=== PATIENT | female | born 1985 | race Two or more races ===

== ENCOUNTER 2019-03-08 18:05 | Inpatient (IN) | payer OTHER ==
[~2019-03-08] VITALS: Ht 162.6 cm; Wt 56.7 kg
[2019-03-08] MEDS ORDERED: MULTIVITAMINS1 EAC8 ORAL (18:29)
--- NOTE | 2019-03-08 18:29 | NUR ---
ED Nurse Note: cxr at bedside
--- NOTE | 2019-03-08 18:31 | NUR ---
ED Nurse Note: Patient walked into ER for positive TB result from a clinic. pt was refered to go to ED. Patient reports having fever, chills, night sweat, bodyache, weigt loss of 5lb in 1 month.
[2019-03-08 18:32] VITALS: BP 100/58
--- NOTE | 2019-03-08 18:42 | NUR ---
ED Nurse Note: blood sample sent down to lab. pt states she doesnt not have any stutum at this time. pt is aware to provide sputum. specimen cup at bedside.
[2019-03-08 18:59] LABS: BASOPHILS % (AUTO) 0.8 % (0.0-2.0); EOSINOPHILS % (AUTO) 0.7 % (0.0-3.0); HEMATOCRIT 34.5 % (37.0-47.0); LYMPHOCYTES % (AUTO) 27.5 % (20.0-45.0); MEAN CORPUSCULAR VOLUME 101 FL (80-99); PLATELET COUNT 218 K/UL (150-450); RED BLOOD COUNT 3.42 M/UL (4.20-5.40); RED CELL DISTRIBUTION WIDTH 13.7 % (11.6-14.8); WHITE BLOOD COUNT 7.2 K/UL (4.8-10.8)
--- NOTE | 2019-03-08 19:01 | NUR ---
ED Nurse Note: report given to bryce
[2019-03-08 19:09] LABS: ANION GAP 9 mmol/L (5-15); BLOOD UREA NITROGEN 16 mg/dL (7-18); CALCIUM 8.5 MG/DL (8.5-10.1); CARBON DIOXIDE 28 MMOL/L (21-32); CHLORIDE 105 MMOL/L (98-107); CREATININE 0.8 MG/DL (0.55-1.30); POTASSIUM 3.3 MMOL/L (3.5-5.1); SODIUM 142 MMOL/L (136-145)
[2019-03-08 19:14] LABS: ALANINE AMINOTRANSFERASE 27 U/L (12-78); ALBUMIN 3.3 G/DL (3.4-5.0); ALBUMIN/GLOBULIN RATIO 0.7 (1.0-2.7); ALKALINE PHOSPHATASE 94 U/L (46-116); ASPARTATE AMINO TRANSFERASE 20 U/L (15-37); BILIRUBIN,TOTAL 0.2 MG/DL (0.2-1.0)
--- NOTE | 2019-03-08 19:53 | Emergency Room Report ---
History of Present Illness General Chief Complaint: Upper Respiratory Illness Source: Patient Present Illness HPI Disclaimer: Please note that this report is being documented using [employer] technology. This can lead to erroneous entry secondary to incorrect interpretation by the dictating instrument. HPI: 33-year-old female with a history of tuberculosis treated 12 years ago presents for evaluation of possible reactivation. The patient describes 1 month of night sweats and clamminess as well as nonproductive intermittent cough , pain in her hands, intermittent abdominal cramping and diarrhea as well as headaches. She had outpatient lab testing on 03/03/2019 tested positive on QuantiFERON TB Gold assay test. She presented to the emergency department at the request of her PMD for evaluation and admission. She is well-appearing in no respiratory distress. She denies other symptoms such as chest pain, shortness of breath, palpitations, skin rash or fevers during the day. PMH: TB treated 12 years ago PSH: Reviewed Allergies: Denies Allergies: Coded Allergies: No Known Allergies (Unverified , 03/08/19) Patient History Last Menstrual Period: 12/2018 Nursing Documentation-PMH Past Medical History: No Stated History Review of Systems All Other Systems: negative except mentioned in HPI Physical Exam Vital Signs Date Time Temp Pulse Resp B/P (MAP) Pulse Ox O2 Delivery O2 Flow Rate FiO2 03/08/19 18:25 97.0 86 15 98/57 (71) 99 Room Air General: Awake and alert, no acute distress HEENT: NC/AT. EOMI. patient is wearing a and 95 mask Cardiovascular: RRR. S1 and S2 normal. No murmur appreciated Resp: Normal work of breathing. No cough, wheezing or crackles appreciated Abdomen: Abdomen is soft, nondistended. Nontender Skin: Intact. No abrasions, laceration or rash over the exposed skin MSK: Normal tone and bulk. Moving all extremities. No obvious deformity. Neuro: Awake and alert. Mentating appropriately. Medical Decision Making Diagnostic Impression: Primary Impression: Tuberculosis screening ER Course 33-year-old female with prior history of tuberculosis presents for possible reactivation. QuantiFERON gold assay test positive on 03/03 with 1 month of night sweats, intermittent cough, arthralgias and intermittent diarrhea. Patient was placed in a negative pressure isolation room. Send broad labs which have returned largely within normal limits. Chest x-ray does not show an obvious cavitary lesion. She is currently afebrile. Will start RIPE treatment and admit for infectious disease evaluation. Laboratory Tests Test 03/08/19 18:36 White Blood Count 7.2 K/UL (4.8-10.8) Red Blood Count 3.42 M/UL (4.20-5.40) L Hemoglobin 11.0 G/DL (12.0-16.0) L Hematocrit 34.5 % (37.0-47.0) L Mean Corpuscular Volume 101 FL (80-99) H Mean Corpuscular Hemoglobin 32.1 PG (27.0-31.0) H Mean Corpuscular Hemoglobin Concent 31.9 G/DL (32.0-36.0) L Red Cell Distribution Width 13.7 % (11.6-14.8) Platelet Count 218 K/UL (150-450) Mean Platelet Volume 7.5 FL (6.5-10.1) Neutrophils (%) (Auto) 61.0 % (45.0-75.0) Lymphocytes (%) (Auto) 27.5 % (20.0-45.0) Monocytes (%) (Auto) 10.0 % (1.0-10.0) Eosinophils (%) (Auto) 0.7 % (0.0-3.0) Basophils (%) (Auto) 0.8 % (0.0-2.0) Sodium Level 142 MMOL/L (136-145) Potassium Level 3.3 MMOL/L (3.5-5.1) L Chloride Level 105 MMOL/L (98-107) Carbon Dioxide Level 28 MMOL/L (21-32) Anion Gap 9 mmol/L (5-15) Blood Urea Nitrogen 16 mg/dL (7-18) Creatinine 0.8 MG/DL (0.55-1.30) Estimate Glomerular Filtration Rate > 60 mL/min (>60) Glucose Level 110 MG/DL (74-106) H Calcium Level 8.5 MG/DL (8.5-10.1) Total Bilirubin 0.2 MG/DL (0.2-1.0) Aspartate Amino Transferase (AST) 20 U/L (15-37) Alanine Aminotransferase (ALT) 27 U/L (12-78) Alkaline Phosphatase 94 U/L (46-116) Total Protein 7.9 G/DL (6.4-8.2) Albumin 3.3 G/DL (3.4-5.0) L Globulin 4.6 g/dL Albumin/Globulin Ratio 0.7 (1.0-2.7) L Reevaluation Time: 21:59 Last Vital Signs Date Time Temp Pulse Resp B/P (MAP) Pulse Ox O2 Delivery O2 Flow Rate FiO2 03/08/19 18:32 81 15 Room Air 03/08/19 18:32 97.6 100/58 99 Reevaluation Impression Labs are returned largely within normal limits. No significant white count, mild anemia. Chemistry within normal limits. No evidence of infiltrate or cavitary lesions on chest x-ray. Patient will be admitted to an isolation room for ID evaluation. Admitted to panel physician Disposition: ADMITTED INPATIENT Condition: Serious Referrals: [facility],REFERRING (PCP) Brian Diego MD Mar 08, 2019 19:53
[2019-03-08] MEDS: Isoniazid 300mg tab ORAL SCH (20:14)
--- NOTE | 2019-03-08 20:40 | NUR ---
ED Nurse Note: Patient was admited to [facility] due to +TB. Patient was transfered to the unit via gurney, with all belongings. Patient AAO x4,VSS at this time, skin is warm to touch.
--- NOTE | 2019-03-08 21:25 | NUR ---
Recieved report from ER nurse Shantal Pt coming to the floor with diagnosis of positive TB. Pt awake alert oriented able to make needs known per patient no other health conditions noted.
[2019-03-08] MEDS ORDERED: Zolpidem 5mg tab ORAL PRN (21:30)
[2019-03-08 21:37] VITALS: BP 106/59
--- NOTE | 2019-03-08 21:45 | NUR ---
Pt arrived to [facility] escorted by Smooth. pt awake alert and oriented x4 able to make needs known. Pt arrived wearing a N95 mask. Pt placed in a negative pressure room droplet precautions maintained. Pt IV to RAC patent intact. no s/s of chill fevers or cough noted at this time. Pt able to ambulate to the restroom and around the room with steady gait. Pt belongings at bedside. Pt instructed and educated not to come out of the room. taught how to use call light to notify the nurse call light left in reach , bed in lowest position will continue to monitor and provide care and treatment as ordered.
--- NOTE | 2019-03-08 21:48 | NUR ---
Nurses notes Contacted Lonnie Kirk for abnormal lab K 3.3, new orders of KCL 40meq IV given will implement and continue to monitor patient labs and condition,
[2019-03-08] MEDS ORDERED: PPD Tuberculin Skin Test 5TU IDERMAL ONE (22:00)
--- NOTE | 2019-03-09 00:23 | NUR ---
Nurse notes Contacted Dr. Fleming > pt c/o of intense pain to IV site at [facility] during potassium infusing. IV immediately stopped no visual skin color changes noted at the IV site or arm at this time. vitals WNL Pt " states arm feel better after stopping IV fluids". awaiting call from provider will continue to monitor for any additional reactions.
[2019-03-09 03:20] VITALS: BP_SYST 101
--- NOTE | 2019-03-09 05:00 | NUR ---
Nurse notes Pt b/p 80/48 asymptomatic pt states' she feels okay"" Dr Fleming notified
[2019-03-09 06:17] LABS: BASOPHILS % (AUTO) 0.6 % (0.0-2.0); EOSINOPHILS % (AUTO) 0.4 % (0.0-3.0); HEMATOCRIT 30.6 % (37.0-47.0); HEMOGLOBIN 10.6 G/DL (12.0-16.0); LYMPHOCYTES % (AUTO) 21.8 % (20.0-45.0); MEAN CORPUSCULAR VOLUME 95 FL (80-99); MONOCYTES % (AUTO) 9.2 % (1.0-10.0); PLATELET COUNT 209 K/UL (150-450); RED BLOOD COUNT 3.23 M/UL (4.20-5.40); RED CELL DISTRIBUTION WIDTH 13.3 % (11.6-14.8); WHITE BLOOD COUNT 6.6 K/UL (4.8-10.8)
--- NOTE | 2019-03-09 07:50 | NUR ---
NURSE NOTES: Received patient in bed. Awake A/O x4. On room air, respirations unlabored. IV site in the Right AC noted with no redness or swelling. Patient denies pain at this time.
[2019-03-09 08:00] VITALS: BP 95/57
[2019-03-09] MEDS: Heparin 5000 units/ml inj SUBQ SCH ×2 (09:00→21:00)
[2019-03-09] MEDS: Isoniazid 300mg tab ORAL SCH (09:26)
--- NOTE | 2019-03-09 09:38 | NUR ---
NURSE NOTES: Patient refused heparin injection. Educated patient on the importance/use of the medication. Patient states she walks around and does not want it.
--- NOTE | 2019-03-09 11:00 | NUR ---
NURSE NOTES: Patient returned to the unit from CT scan. Patient A/O x4, no apparent distress.
--- NOTE | 2019-03-09 11:45 | Diagnostic Imaging Report ---
Indication: Cough Comparison: None A single view chest radiograph was obtained. Findings: Cardiomediastinal appearance is within normal limits for age. The lungs are clear. Pulmonary vascularity is appropriate. The diaphragmatic contour is smooth and costophrenic angles are sharp. No pleural effusions are identified. The bones are unremarkable. Impression: No acute findings
--- NOTE | 2019-03-09 11:58 | NUR ---
NURSE NOTES: Patient went down for CT chest via wc. Patient in stable condition.
[2019-03-09 12:00] VITALS: BP 92/56
--- NOTE | 2019-03-09 13:18 | Pulmonology Progress Note ---
Assessment/Plan Problems: (1) History of tuberculosis Assessment/Plan CT of chest PPD ID evaluation Subjective ROS Limited/Unobtainable: Yes Interval Events: no new complains Constitutional: Reports: no symptoms HEENT: Repors: no symptoms Allergies: Coded Allergies: No Known Allergies (Unverified , 03/08/19) Objective Last 24 Hour Vital Signs Date Time Temp Pulse Resp B/P (MAP) Pulse Ox O2 Delivery O2 Flow Rate FiO2 03/09/19 12:00 98.1 18 92/56 (68) 100 03/09/19 09:00 Room Air 03/09/19 08:00 98.4 18 95/57 (70) 97 03/09/19 03:20 98.7 17 101/ 100 03/08/19 22:12 Room Air 03/08/19 21:40 97.6 68 18 106/59 99 Room Air 03/08/19 21:37 97.6 68 18 106/59 99 Room Air 03/08/19 18:32 81 15 Room Air 03/08/19 18:32 97.6 81 15 100/58 99 Room Air 03/08/19 18:25 97.0 86 15 98/57 (71) 99 Room Air Intake and Output 03/08/19 03/09/19 18:59 06:59 Intake Total 400 ml Balance 400 ml Intake Oral 400 ml General Appearance: WD/WN HEENT: normocephalic, atraumatic Respiratory/Chest: chest wall non-tender, lungs clear Breasts: no masses Cardiovascular: normal rate Abdomen: normal bowel sounds, soft, non tender, no mass Extremities: no cyanosis, no clubbing Skin: no rash Neurologic/Psychiatric: no motor/sensory deficits Lymphatic: no neck adenopathy Laboratory Tests 03/08/19 18:36: White Blood Count 7.2, Red Blood Count 3.42L, Hemoglobin 11.0L, Hematocrit 34.5L , Mean Corpuscular Volume 101H, Mean Corpuscular Hemoglobin 32.1H, Mean Corpuscular Hemoglobin Concent 31.9L, Red Cell Distribution Width 13.7, Platelet Count 218, Mean Platelet Volume 7.5, Neutrophils (%) (Auto) 61.0, Lymphocytes (%) (Auto) 27.5, Monocytes (%) (Auto) 10.0, Eosinophils (%) (Auto) 0.7, Basophils (%) (Auto) 0.8, Sodium Level 142, Potassium Level 3.3L, Chloride Level 105, Carbon Dioxide Level 28, Anion Gap 9, Blood Urea Nitrogen 16, Creatinine 0.8, Estimat Glomerular Filtration Rate > 60, Glucose Level 110H, Calcium Level 8.5, Total Bilirubin 0.2, Aspartate Amino Transf (AST/SGOT) 20, Alanine Aminotransferase (ALT/SGPT) 27, Alkaline Phosphatase 94, Lactate Dehydrogenase 161, Total Protein 7.9, Albumin 3.3L, Globulin 4.6, Albumin/ Globulin Ratio 0.7L 03/09/19 05:59: White Blood Count 6.6, Red Blood Count 3.23L, Hemoglobin 10.6L, Hematocrit 30.6L , Mean Corpuscular Volume 95, Mean Corpuscular Hemoglobin 32.8H, Mean Corpuscular Hemoglobin Concent 34.5, Red Cell Distribution Width 13.3, Platelet Count 209, Mean Platelet Volume 6.3L, Neutrophils (%) (Auto) 68.0, Lymphocytes ( %) (Auto) 21.8, Monocytes (%) (Auto) 9.2, Eosinophils (%) (Auto) 0.4, Basophils (%) (Auto) 0.6, Carcinoembryonic Antigen [Pending], Human Chorionic Gonadotropin , Qual Negative, Blastomyces Ab Immunodiffusion [Pending], Histoplasma Mycelial Antibody [Pending], Histoplasma Antibody w Mycelial Ag [Pending], Histoplasma Antibody with Yeast Ag [Pending], TB Test (T-Spot) [Pending], TB Test Nil Control (T-Spot) [Pending], TB Test Panel A (T-Spot) [Pending], TB Test Panel B (T-Spot) [Pending], TB Test Positive Control (T-Spot) [Pending] Current Medications Medications (Trade) Dose Ordered Sig/Alma Rosa Route PRN Reason Start Time Stop Time Status Last Admin Dose Admin Acetaminophen (Tylenol) 650 mg Q4H PRN ORAL fever 03/08/19 21:30 04/07/19 21:29 Ethambutol HCl (Myambutol) 1,200 mg DAILY ORAL 03/08/19 20:00 04/07/19 19:59 03/09/19 09:26 Heparin Sodium (Porcine) (Heparin 5000 units/ml) 5,000 units EVERY 12 HOURS SUBQ 03/09/19 09:00 04/08/19 08:59 Isoniazid (Inh) 300 mg DAILY ORAL 03/08/19 20:00 04/07/19 19:59 03/09/19 09:26 Ondansetron HCl (Zofran) 4 mg Q6H PRN IVP Nausea & Vomiting 03/08/19 21:30 04/07/19 21:29 Pyrazinamide (Pza) 1,500 mg DAILY ORAL 03/08/19 20:00 04/07/19 19:59 03/09/19 09:26 Rifampin (Rifadin) 600 mg DAILY ORAL 03/08/19 20:00 04/07/19 19:59 03/09/19 09:26 Zolpidem Tartrate (Ambien) 5 mg HSPRN PRN ORAL Insomnia 03/08/19 21:30 03/15/19 21:29 Ghada Baldwin MD Mar 09, 2019 13:18
--- NOTE | 2019-03-09 15:15 | Diagnostic Imaging Report ---
Indication: Chest pain Technique: Continuous helical transaxial imaging of the chest was obtained from the thoracic inlet to the upper abdomen after intravenous nonionic contrast administration. Coronal 2-D reformats were also obtained. Automatic Exposure Control was utilized. Total Dose length Product (DLP): 516.[address] Dose Index Volume (CTDIvol): 79.7 mGy Comparison: none Findings: The lungs are clear. There is no adenopathy identified. The heart is unremarkable. No pleural or pericardial effusions are identified. The liver is hypodense. Gallbladder is contracted. IMPRESSION: No acute findings The CT scanner at [facility] is accredited by the [employer] and the scans are performed using dose optimization techniques as appropriate to a performed exam including Automatic Exposure control.
--- NOTE | 2019-03-09 15:31 | NUR ---
CASE MANAGEMENT:INITIAL REVIEW 33 YR OLD FEMALE FROM CLINIC CC;UPPER RESPIRATORY ILLNESS SI;TUBERCULOSIS SCREENING 98.1 68 18 92/56 97% ON RA IS;CXR - No acute findings CHEST CT - No acute findings ADMITTED TO MED SURG MED SURG STATUS DCP; FROM HOME
[2019-03-09 16:00] VITALS: BP 90/54
--- NOTE | 2019-03-09 16:05 | Consultation ---
History of Present Illness General Date patient seen: Mar 09, 2019 Chief Complaint: Upper Respiratory Illness Present Illness HPI 33 y/o F with hx of Tuberculosis- likely latent (treated 12 yrs ago) presented to ED on 03/08 with 1 months of night sweats and clamminess, hand and foot pain and swelling, intermittent abd cramping and diarrhea, headache, intermitent rash on thigh and legs. 5 lbs wt loss in 1 month. Patient says that she saw her PCP and did some testing and her blood test for TB was positive so she was sent to hospital. No chest imaging or sputum collected. Denied CP, SOB, cough Alisa was born in [facility] [place] and moved to [facility] at age 13. She was diagnosed with tuberculosis about 12 years ago. By the description seems it was latent TB. Pt described having no symptoms and she had a positive skin test and treated with months; unable to see which medication or if multiple or one medication. Allergies: Coded Allergies: No Known Allergies (Unverified , 03/08/19) Medication History Scheduled Multivitamin With Minerals (Multivitamins With Minerals*), 1 TAB ORAL DAILY, ( Reported) Patient History Healthcare decision maker Patient Resuscitation status Full Code Advanced Directive on File Patient History Narrative Pmhx: as above Shx: reviewed Fhx: non contributory Review of Systems All Other Systems: negative except mentioned in HPI Physical Exam Physical Exam Narrative General: Awake and alert, no acute distress HEENT: NC/AT. EOMI. patient is wearing a and 95 mask Cardiovascular: RRR. S1 and S2 normal. No murmur appreciated Resp: Normal work of breathing. No cough, wheezing or crackles appreciated Abdomen: Abdomen is soft, nondistended. Nontender Skin: Intact. No abrasions, laceration or rash over the exposed skin MSK: Normal tone and bulk. Moving all extremities. No obvious deformity. Neuro: Awake and alert. Mentating appropriately. Last 24 Hour Vital Signs Date Time Temp Pulse Resp B/P (MAP) Pulse Ox O2 Delivery O2 Flow Rate FiO2 03/09/19 12:00 98.1 18 92/56 (68) 100 03/09/19 09:00 Room Air 03/09/19 08:00 98.4 18 95/57 (70) 97 03/09/19 03:20 98.7 17 101/ 100 03/08/19 22:12 Room Air 03/08/19 21:40 97.6 68 18 106/59 99 Room Air 03/08/19 21:37 97.6 68 18 106/59 99 Room Air 03/08/19 18:32 81 15 Room Air 03/08/19 18:32 97.6 81 15 100/58 99 Room Air 03/08/19 18:25 97.0 86 15 98/57 (71) 99 Room Air Intake and Output 03/08/19 03/09/19 19:00 07:00 Intake Total 400 ml Balance 400 ml Intake Oral 400 ml Laboratory Tests Test 03/08/19 18:36 03/09/19 05:59 White Blood Count 7.2 K/UL (4.8-10.8) 6.6 K/UL (4.8-10.8) Red Blood Count 3.42 M/UL (4.20-5.40) L 3.23 M/UL (4.20-5.40) L Hemoglobin 11.0 G/DL (12.0-16.0) L 10.6 G/DL (12.0-16.0) L Hematocrit 34.5 % (37.0-47.0) L 30.6 % (37.0-47.0) L Mean Corpuscular Volume 101 FL (80-99) H 95 FL (80-99) Mean Corpuscular Hemoglobin 32.1 PG (27.0-31.0) H 32.8 PG (27.0-31.0) H Mean Corpuscular Hemoglobin Concent 31.9 G/DL (32.0-36.0) L 34.5 G/DL (32.0-36.0) Red Cell Distribution Width 13.7 % (11.6-14.8) 13.3 % (11.6-14.8) Platelet Count 218 K/UL (150-450) 209 K/UL (150-450) Mean Platelet Volume 7.5 FL (6.5-10.1) 6.3 FL (6.5-10.1) L Neutrophils (%) (Auto) 61.0 % (45.0-75.0) 68.0 % (45.0-75.0) Lymphocytes (%) (Auto) 27.5 % (20.0-45.0) 21.8 % (20.0-45.0) Monocytes (%) (Auto) 10.0 % (1.0-10.0) 9.2 % (1.0-10.0) Eosinophils (%) (Auto) 0.7 % (0.0-3.0) 0.4 % (0.0-3.0) Basophils (%) (Auto) 0.8 % (0.0-2.0) 0.6 % (0.0-2.0) Sodium Level 142 MMOL/L (136-145) Potassium Level 3.3 MMOL/L (3.5-5.1) L Chloride Level 105 MMOL/L (98-107) Carbon Dioxide Level 28 MMOL/L (21-32) Anion Gap 9 mmol/L (5-15) Blood Urea Nitrogen 16 mg/dL (7-18) Creatinine 0.8 MG/DL (0.55-1.30) Estimat Glomerular Filtration Rate > 60 mL/min (>60) Glucose Level 110 MG/DL (74-106) H Calcium Level 8.5 MG/DL (8.5-10.1) Total Bilirubin 0.2 MG/DL (0.2-1.0) Aspartate Amino Transf (AST/SGOT) 20 U/L (15-37) Alanine Aminotransferase (ALT/SGPT) 27 U/L (12-78) Alkaline Phosphatase 94 U/L (46-116) Lactate Dehydrogenase 161 U/L (81-234) Total Protein 7.9 G/DL (6.4-8.2) Albumin 3.3 G/DL (3.4-5.0) L Globulin 4.6 g/dL Albumin/Globulin Ratio 0.7 (1.0-2.7) L Carcinoembryonic Antigen Pending Human Chorionic Gonadotropin, Qual Negative (NEGATIVE) Blastomyces Ab Immunodiffusion Pending Histoplasma Mycelial Antibody Pending Histoplasma Antibody w Mycelial Ag Pending Histoplasma Antibody with Yeast Ag Pending TB Test (T-Spot) Pending TB Test Nil Control (T-Spot) Pending TB Test Panel A (T-Spot) Pending TB Test Panel B (T-Spot) Pending TB Test Positive Control (T-Spot) Pending Height (Feet): 5 Height (Inches): 4.00 Weight (Pounds): 125 Medications Current Medications Medications (Trade) Dose Ordered Sig/Alma Rosa Route PRN Reason Start Time Stop Time Status Last Admin Dose Admin Acetaminophen (Tylenol) 650 mg Q4H PRN ORAL fever 03/08/19 21:30 04/07/19 21:29 Ethambutol HCl (Myambutol) 1,200 mg DAILY ORAL 03/08/19 20:00 04/07/19 19:59 03/09/19 09:26 Heparin Sodium (Porcine) (Heparin 5000 units/ml) 5,000 units EVERY 12 HOURS SUBQ 03/09/19 09:00 04/08/19 08:59 Isoniazid (Inh) 300 mg DAILY ORAL 03/08/19 20:00 04/07/19 19:59 03/09/19 09:26 Ondansetron HCl (Zofran) 4 mg Q6H PRN IVP Nausea & Vomiting 03/08/19 21:30 04/07/19 21:29 Pyrazinamide (Pza) 1,500 mg DAILY ORAL 03/08/19 20:00 04/07/19 19:59 03/09/19 09:26 Rifampin (Rifadin) 600 mg DAILY ORAL 03/08/19 20:00 04/07/19 19:59 03/09/19 09:26 Zolpidem Tartrate (Ambien) 5 mg HSPRN PRN ORAL Insomnia 03/08/19 21:30 03/15/19 21:29 Assessment/Plan Assessment/Plan: Abx: RIPE 03/08- Assessment: Night sweats, arthralgias- suspect likely rheumatological disease. Patient has no evidence of active TB (no cough, normal chest imaging). Her QTB gold and PPD will always be positive. -CT chest: No acute findings -CXR:No acute findings Intermittent Abdominal pain Afebrile No leukocytosis hx of Tuberculosis (treated 12 yrs ago)- likely latent Plan: -D/c RIPE and airborne precautions -f/u cx -Monitor CBC/CMP, temperatures -Influenza sc, HIV ab sc and VL -2d Echo, Abd uS -lipase -LUIZA, RF, ANCA, ESR, CRP Thank you for this consultation. Will continue to follow along with you. Discussed with Jess Lubin M.D. Mar 09, 2019 16:05
[2019-03-09] MEDS ORDERED: Pyridoxine 50mg tab ORAL SCH (17:00)
--- NOTE | 2019-03-09 17:05 | History & Physical ---
History and Physical History & Physicial Jean Claude Nowak MD Mar 09, 2019 17:05
--- NOTE | 2019-03-09 19:30 | NUR ---
HAND-OFF: Report given to Cassi SOLIS.
--- NOTE | 2019-03-09 19:35 | NUR ---
NURSE NOTES: Patient is in bed, awake and alert x4. No signs of distress or SOB. On TB precautions at this time. Bed locked and in lowest position. Call light in easy reach. Will continue to monitor the patient.
[2019-03-09 19:50] VITALS: BP 93/54
--- NOTE | 2019-03-09 21:15 | History and Physical Report ---
DATE OF ADMISSION: 03/08/2019 CHIEF COMPLAINT: Upper respiratory symptoms. HISTORY OF PRESENT ILLNESS: This is a 33-year-old female with past medical history significant for tuberculosis treated about 12 years ago, who has presented to the emergency department complaining about shortness of breath and cough. The patient complained about 1 month of night sweats, crampy as well as nonproductive intermittent cough, pain in her hand, intermittent abdominal cramps, diarrhea as well as headache. The patient has been tested in the past with positive QuantiFERON TB gold assay. Subsequently, the patient was advised to come to the emergency department for further evaluation and TB rule out. PAST MEDICAL HISTORY/PAST SURGICAL HISTORY: Significant for tuberculosis 12 years ago. MEDICATIONS AT HOME: None. SOCIAL HISTORY: Denies any smoking, alcohol, or drugs. FAMILY HISTORY: Noncontributory. ALLERGIES: No known drug allergies. REVIEW OF SYSTEMS: Mostly as above. Denies any dysuria, frequency, or hematuria. Denies any hemoptysis or hematochezia. Denies any fall or head trauma. Denies any weight loss. PHYSICAL EXAMINATION: VITAL SIGNS: On admission temperature 97.0, pulse of 86, respirations 15, blood pressure 95/57. GENERAL: The patient is awake and responsive, in no acute distress. HEAD AND NECK: Pupils are equal and reactive to light. Extraocular movements intact. Neck was supple. No JVD. LUNGS: Good air entry. No wheezing or rales. HEART: S1, S2. Regular rate and rhythm. No gallops or rubs. ABDOMEN: Soft, nondistended, nontender. Positive bowel sounds. EXTREMITIES: No cyanosis, clubbing, or edema. NEUROLOGIC: Cranial nerves II through XII grossly normal. Motor 5/5 in all extremities. Gait is intact. RECTAL/GENITOURINARY: Refused and deferred. PSYCHIATRIC: Mood and affect is intact. LABORATORY DATA: On admission WBC 7.2, hemoglobin 11, hematocrit 34, platelet is 218. Sodium 142, potassium , chloride 105, bicarb 28, BUN 16, creatinine 0.8, glucose is 110. Calcium is 8.5. Albumin level is 3.3. Lactate dehydrogenase is 161. Beta-hCG is negative. Chest x-ray was noted to be no acute process. CT of the chest was done, no acute findings. ASSESSMENT: 1. Upper respiratory infection, possible recurrent tuberculosis. 2. History of TB, treated about 12 years ago. 3. Anemia. PLAN: Admit the patient to respiratory isolation room. We will follow up with Dr. Baldwin, Pulmonary Critical Care as well as Dr. Youngblood from Infectious Disease. PPD placement and sputum for AFB. We will follow up with the laboratory in the morning. Start the patient treatment for the tuberculosis with rifampin, INH, PZA, and ethambutol. We will follow up with the final culture. Jean Claude Holger Nowak DR: DEBRA JOB#: [id number] CC:
--- NOTE | 2019-03-09 23:39 | NUR ---
NURSE NOTES: Rcvd report on pt, explained pt to be NPO at midnight and pt aware, no c/o pain, able to make needs known, will continue to monitor.
--- NOTE | 2019-03-09 23:46 | NUR ---
HAND-OFF: Report given to WILL Romeo.
[2019-03-10] VITALS: BP 87/42
[2019-03-10 00:26] VITALS: BP 94/38
[2019-03-10 04:00] VITALS: BP 98/62
--- NOTE | 2019-03-10 07:06 | NUR ---
HAND-OFF: Report given to WILL Srinivasan. pt NPO, pt stable
[2019-03-10 07:26] LABS: CREATINE KINASE 27 U/L (26-308)
--- NOTE | 2019-03-10 07:31 | NUR ---
NURSE NOTES: received report from WILL Romeo. patient in bed. alert.oriented. verbally responsive. no respiratory distress noted. no pain at this time. no fever. no coughing. IV on RAC saline lock. intact. air borne precaution d/t possible TB and HX of TB 12years ago. PPE at all times. US ABD and 2D echo today. bed in the lowest position and locked. call light within reach. will continue to provide plan of care.
[2019-03-10 08:00] VITALS: BP 95/55
[2019-03-10] MEDS: Heparin 5000 units/ml inj SUBQ SCH (09:00)
--- NOTE | 2019-03-10 09:08 | NUR ---
NURSE NOTES: patient c/o headache 04/16. tylenol order only for fever. notified Dr. Baldwin and received order. give Tylenol 650mg po prn q4hrs for mild pain/Temperature >100.5 . order noted and carried out.
--- NOTE | 2019-03-10 09:48 | Diagnostic Imaging Report ---
EXAM: US Abdomen Complete CLINICAL HISTORY: ABD PAIN TECHNIQUE: Real-time ultrasound of the abdomen (complete) with image documentation. COMPARISON: No relevant prior studies available. FINDINGS: Liver: Liver diameter 15.6 cm. No focal parenchymal lesions. No intrahepatic biliary ductal dilatation. Gallbladder: Unremarkable. No gallstones. No wall thickening. No pericholecystic fluid. Common bile duct: Common bile duct diameter 4.7 mm, within normal limits. Pancreas: Unremarkable as visualized. Pancreatic body and tail are obscured by bowel gas. Kidneys: Right kidney length of 11.8 cm. Left kidney length of 10.9 cm. Normal cortical thickness. Possible mildly echogenic right renal parenchyma No visible stones. No hydronephrosis. Incidental note of 2 adjacent simple-appearing right upper pole renal cortical cysts, measuring a maximum of 1.5 cm and 1.3 cm respectively. Spleen: Spleen length of 8.9 cm, within normal limits. Aorta: Unremarkable. Visualized portions appear unremarkable without evidence of aneurysm. Inferior vena cava: Unremarkable. IMPRESSION: 1. Mildly echogenic right kidney. This is nonspecific but may suggest underlying renal parenchymal disease. 2. Incidental note of 2 adjacent simple-appearing right upper pole renal cortical cysts, measuring a maximum of 1.5 cm and 1.3 cm respectively.
--- NOTE | 2019-03-10 10:06 | Infectious Diseases Prog Note ---
Assessment/Plan Assessment/Plan Assessment: Night sweats, arthralgias- suspect likely rheumatological disease. Patient has no evidence of active TB (no cough, normal chest imaging). Her QTB gold and PPD will always be positive. -CT chest: No acute findings -CXR:No acute findings -HIV ab sc neg -ESR 121, CRp 2.2 -influenza sc neg Intermittent Abdominal pain -Abd US: Mildly echogenic right kidney. This is nonspecific but may suggest underlying renal parenchymal disease. Incidental note of 2 adjacent simple- appearing right upper pole renal cortical cysts, measuring a maximum of 1.5 cm and 1.3 cm respectively. Afebrile No leukocytosis hx of Tuberculosis (treated 12 yrs ago)- likely latent (had no symptoms at the time of diagnosis and no sequela of old TB on CT) Plan: -Continue to monitor off abx -f/u cx -Monitor CBC/CMP, temperatures -f/u HIV VL -f/u 2d Echo -f/u LUIZA, RF, ANCA, anti CCP Thank you for this consultation. Will continue to follow along with you. Discussed with RN Subjective Allergies: Coded Allergies: No Known Allergies (Unverified , 03/08/19) Subjective afebrile no leukocytosis Objective Vital Signs Last 24 Hour Vital Signs Date Time Temp Pulse Resp B/P (MAP) Pulse Ox O2 Delivery O2 Flow Rate FiO2 03/10/19 09:00 Room Air 03/10/19 08:00 98.9 63 18 95/55 (68) 99 03/10/19 04:00 97.7 60 16 98/62 (74) 98 03/10/19 00:26 94/38 (56) 03/10/19 00:00 98.4 60 12 87/42 (57) 99 03/09/19 20:14 Room Air 03/09/19 19:50 98.2 72 12 93/54 (67) 96 03/09/19 16:00 97.9 18 90/54 (66) 100 03/09/19 12:00 98.1 18 92/56 (68) 100 Height (Feet): 5 Height (Inches): 4.00 Weight (Pounds): 125 Objective General: Awake and alert, no acute distress HEENT: NC/AT. EOMI. patient is wearing a and 95 mask Cardiovascular: RRR. S1 and S2 normal. No murmur appreciated Resp: Normal work of breathing. No cough, wheezing or crackles appreciated Abdomen: Abdomen is soft, nondistended. Nontender Skin: Intact. No abrasions, laceration or rash over the exposed skin MSK: Normal tone and bulk. Moving all extremities. No obvious deformity. Neuro: Awake and alert. Mentating appropriately. Microbiology Date/Time Source Procedure Growth Status 03/09/19 19:00 Nasopharynx - Final Complete 03/09/19 19:00 Nasopharynx - Final Complete Laboratory Tests Test 03/10/19 06:30 Erythrocyte Sedimentation Rate 121 MM/HR (0-20) H Total Creatine Kinase 27 U/L (26-308) C-Reactive Protein, Quantitative 2.2 mg/dL (0.00-0.90) H Lipase 158 U/L (73-393) Rheumatoid Factor Screen Pending Cyclic Citrullinated Peptide IgG Ab Pending Anti-Nuclear Antibody Screen Pending c-ANCA Titer Pending p-ANCA Titer Pending HIV-1 RNA (PCR) log10 Value Pending HIV-1 RNA Ultraquantitative (PCR) Pending HIV (1&2) Antibody Rapid Negative (NEGATIVE) Parvovirus (B19) IgG Antibody Pending Parvovirus (B19) IgM Antibody Pending Current Medications Medications (Trade) Dose Ordered Sig/Alma Rosa Route PRN Reason Start Time Stop Time Status Last Admin Dose Admin Acetaminophen (Tylenol) 650 mg Q4H PRN ORAL Mild Pain/Temp > 100.5 03/10/19 09:30 04/07/19 21:29 03/10/19 09:25 Heparin Sodium (Porcine) (Heparin 5000 units/ml) 5,000 units EVERY 12 HOURS SUBQ 03/09/19 09:00 04/08/19 08:59 Ondansetron HCl (Zofran) 4 mg Q6H PRN IVP Nausea & Vomiting 03/08/19 21:30 04/07/19 21:29 Zolpidem Tartrate (Ambien) 5 mg HSPRN PRN ORAL Insomnia 03/08/19 21:30 03/15/19 21:29 Jess Youngblood M.D. Mar 10, 2019 10:06
--- NOTE | 2019-03-10 10:14 | Pulmonology Progress Note ---
Assessment/Plan Assessment/Plan Pulmonary Progress Note Subjective Patient is a 33 year old woman admitted with malaise, night sweats, normal chest imaging No new complaints Intermittent Abdominal pain, Abd US: Mildly echogenic right kidney. This is nonspecific but may suggest underlying renal parenchymal disease. Incidental note of 2 adjacent simple-appearing right upper pole renal cortical cysts, measuring a maximum of 1.5 cm and 1.3 cm respectively. Hx of Tuberculosis (treated 12 yrs ago)- likely latent (had no symptoms at the time of diagnosis and no sequela of old TB on CT) ID following Quantiferon Gold/TB Gold pending Allergies: Coded Allergies: No Known Allergies (Unverified , 03/08/19) Objective Vital Signs Noted General Appearance: WD/WN HEENT: normocephalic, atraumatic Respiratory/Chest: chest wall non-tender, lungs clear Breasts: no masses Cardiovascular: normal rate Abdomen: normal bowel sounds, soft, non tender, no mass Extremities: no cyanosis, no clubbing Skin: no rash Neurologic/Psychiatric: no motor/sensory deficits Lymphatic: no neck adenopathy Laboratory Tests 03/08/19 18:36: White Blood Count 7.2, Red Blood Count 3.42L, Hemoglobin 11.0L, Hematocrit 34.5L , Mean Corpuscular Volume 101H, Mean Corpuscular Hemoglobin 32.1H, Mean Corpuscular Hemoglobin Concent 31.9L, Red Cell Distribution Width 13.7, Platelet Count 218, Mean Platelet Volume 7.5, Neutrophils (%) (Auto) 61.0, Lymphocytes (%) (Auto) 27.5, Monocytes (%) (Auto) 10.0, Eosinophils (%) (Auto) 0.7, Basophils (%) (Auto) 0.8, Sodium Level 142, Potassium Level 3.3L, Chloride Level 105, Carbon Dioxide Level 28, Anion Gap 9, Blood Urea Nitrogen 16, Creatinine 0.8, Estimat Glomerular Filtration Rate > 60, Glucose Level 110H, Calcium Level 8.5, Total Bilirubin 0.2, Aspartate Amino Transf (AST/SGOT) 20, Alanine Aminotransferase (ALT/SGPT) 27, Alkaline Phosphatase 94, Lactate Dehydrogenase 161, Total Protein 7.9, Albumin 3.3L, Globulin 4.6, Albumin/ Globulin Ratio 0.7L 03/09/19 05:59: White Blood Count 6.6, Red Blood Count 3.23L, Hemoglobin 10.6L, Hematocrit 30.6L , Mean Corpuscular Volume 95, Mean Corpuscular Hemoglobin 32.8H, Mean Corpuscular Hemoglobin Concent 34.5, Red Cell Distribution Width 13.3, Platelet Count 209, Mean Platelet Volume 6.3L, Neutrophils (%) (Auto) 68.0, Lymphocytes ( %) (Auto) 21.8, Monocytes (%) (Auto) 9.2, Eosinophils (%) (Auto) 0.4, Basophils (%) (Auto) 0.6, Carcinoembryonic Antigen [Pending], Human Chorionic Gonadotropin , Qual Negative, Blastomyces Ab Immunodiffusion [Pending], Histoplasma Mycelial Antibody [Pending], Histoplasma Antibody w Mycelial Ag [Pending], Histoplasma Antibody with Yeast Ag [Pending], TB Test (T-Spot) [Pending], TB Test Nil Control (T-Spot) [Pending], TB Test Panel A (T-Spot) [Pending], TB Test Panel B (T-Spot) [Pending], TB Test Positive Control (T-Spot) [Pending] Current Medications Medications (Trade) Dose Ordered Sig/Alma Rosa Route PRN Reason Start Time Stop Time Status Last Admin Dose Admin Acetaminophen (Tylenol) 650 mg Q4H PRN ORAL fever 03/08/19 21:30 04/07/19 21:29 Ethambutol HCl (Myambutol) 1,200 mg DAILY ORAL 03/08/19 20:00 04/07/19 19:59 03/09/19 09:26 Heparin Sodium (Porcine) (Heparin 5000 units/ml) 5,000 units EVERY 12 HOURS SUBQ 03/09/19 09:00 04/08/19 08:59 Isoniazid (Inh) 300 mg DAILY ORAL 03/08/19 20:00 04/07/19 19:59 03/09/19 09:26 Ondansetron HCl (Zofran) 4 mg Q6H PRN IVP Nausea & Vomiting 03/08/19 21:30 04/07/19 21:29 Pyrazinamide (Pza) 1,500 mg DAILY ORAL 03/08/19 20:00 04/07/19 19:59 03/09/19 09:26 Rifampin (Rifadin) 600 mg DAILY ORAL 03/08/19 20:00 04/07/19 19:59 03/09/19 09:26 Zolpidem Tartrate (Ambien) 5 mg HSPRN PRN ORAL Insomnia 03/08/19 21:30 03/15/19 21:29 CXR: Normal CT Chest: No abnormality Subjective ROS Limited/Unobtainable: No Allergies: Coded Allergies: No Known Allergies (Unverified , 03/08/19) Objective Last 24 Hour Vital Signs Date Time Temp Pulse Resp B/P (MAP) Pulse Ox O2 Delivery O2 Flow Rate FiO2 03/10/19 09:00 Room Air 03/10/19 08:00 98.9 63 18 95/55 (68) 99 03/10/19 04:00 97.7 60 16 98/62 (74) 98 03/10/19 00:26 94/38 (56) 03/10/19 00:00 98.4 60 12 87/42 (57) 99 03/09/19 20:14 Room Air 03/09/19 19:50 98.2 72 12 93/54 (67) 96 03/09/19 16:00 97.9 18 90/54 (66) 100 03/09/19 12:00 98.1 18 92/56 (68) 100 Intake and Output 03/09/19 03/10/19 19:00 07:00 Intake Total 720 ml 240 ml Balance 720 ml 240 ml Intake Oral 720 ml 240 ml # Voids 6 Microbiology Date/Time Source Procedure Growth Status 03/09/19 19:00 Nasopharynx - Final Complete 03/09/19 19:00 Nasopharynx - Final Complete Laboratory Tests 03/10/19 06:30: Erythrocyte Sedimentation Rate 121H, Total Creatine Kinase 27, C-Reactive Protein, Quantitative 2.2H, Lipase 158, Rheumatoid Factor Screen [Pending], Cyclic Citrullinated Peptide IgG Ab [Pending], Anti-Nuclear Antibody Screen [ Pending], c-ANCA Titer [Pending], p-ANCA Titer [Pending], HIV-1 RNA (PCR) log10 Value [Pending], HIV-1 RNA Ultraquantitative (PCR) [Pending], HIV (1&2) Antibody Rapid Negative, Parvovirus (B19) IgG Antibody [Pending], Parvovirus ( B19) IgM Antibody [Pending] Current Medications Medications (Trade) Dose Ordered Sig/Alma Rosa Route PRN Reason Start Time Stop Time Status Last Admin Dose Admin Acetaminophen (Tylenol) 650 mg Q4H PRN ORAL Mild Pain/Temp > 100.5 03/10/19 09:30 04/07/19 21:29 03/10/19 09:25 Heparin Sodium (Porcine) (Heparin 5000 units/ml) 5,000 units EVERY 12 HOURS SUBQ 03/09/19 09:00 04/08/19 08:59 Ondansetron HCl (Zofran) 4 mg Q6H PRN IVP Nausea & Vomiting 03/08/19 21:30 04/07/19 21:29 Zolpidem Tartrate (Ambien) 5 mg HSPRN PRN ORAL Insomnia 03/08/19 21:30 03/15/19 21:29 Andrea Musa MD Mar 10, 2019 10:14
[2019-03-10 12:00] VITALS: BP 97/57
--- NOTE | 2019-03-10 12:43 | NUR ---
NURSE NOTES: Patient seen by Dr. Youngblood. Patient cleared by ID for discharge. no ATB medications needed upon discharge.
--- NOTE | 2019-03-10 12:53 | NUR ---
NURSE NOTES: Notified that patient was cleared by Dr. Youngblood/ANSELMO for discharge. waiting for further order.
--- NOTE | 2019-03-10 13:08 | NUR ---
NURSE NOTES: received message from Dr. garnett. No new order at this time.
--- NOTE | 2019-03-10 13:24 | NUR ---
NURSE NOTES: received discharge order from Dr. Baldwin. Patient can discharge today. No discharge medications needed. order noted and carried out.
--- NOTE | 2019-03-10 14:00 | NUR ---
NURSE NOTES: spoke to MR. LillyLuke. he will warehouse order picker the patient around 1530 today.
--- NOTE | 2019-03-10 15:40 | Internal Med Progress Note ---
Subjective Date of Service: Mar 10, 2019 Physician Name YolandeGregory Attending Physician Jean Claude Nowak MD Current Medications Medications (Trade) Dose Ordered Sig/Alma Rosa Route PRN Reason Start Time Stop Time Status Last Admin Dose Admin Acetaminophen (Tylenol) 650 mg Q4H PRN ORAL Mild Pain/Temp > 100.5 03/10/19 09:30 04/07/19 21:29 03/10/19 09:25 Heparin Sodium (Porcine) (Heparin 5000 units/ml) 5,000 units EVERY 12 HOURS SUBQ 03/09/19 09:00 04/08/19 08:59 Ondansetron HCl (Zofran) 4 mg Q6H PRN IVP Nausea & Vomiting 03/08/19 21:30 04/07/19 21:29 Zolpidem Tartrate (Ambien) 5 mg HSPRN PRN ORAL Insomnia 03/08/19 21:30 03/15/19 21:29 Allergies: Coded Allergies: No Known Allergies (Unverified , 03/08/19) ROS Limited/Unobtainable: No Constitutional: Reports: no symptoms HEENT: Reports: no symptoms Cardiovascular: Reports: no symptoms Respiratory: Reports: cough, SOB with excertion Gastrointestinal/Abdominal: Reports: no symptoms Genitourinary: Reports: no symptoms Neurologic/Psychiatric: Reports: no symptoms Subjective 33 YO F with history of tuberculosis, treated, admitted with cough and shortness of breath. Cover for Int med-DR Nowak Objective Last Vital Signs Date Time Temp Pulse Resp B/P (MAP) Pulse Ox O2 Delivery O2 Flow Rate FiO2 03/10/19 12:00 99.3 93 20 97/57 (70) 99 03/10/19 09:00 Room Air Laboratory Tests Test 03/10/19 06:30 Erythrocyte Sedimentation Rate 121 MM/HR (0-20) H Total Creatine Kinase 27 U/L (26-308) C-Reactive Protein, Quantitative 2.2 mg/dL (0.00-0.90) H Lipase 158 U/L (73-393) Rheumatoid Factor Screen Pending Cyclic Citrullinated Peptide IgG Ab Pending Anti-Nuclear Antibody Screen Pending c-ANCA Titer Pending p-ANCA Titer Pending HIV-1 RNA (PCR) log10 Value Pending HIV-1 RNA Ultraquantitative (PCR) Pending HIV (1&2) Antibody Rapid Negative (NEGATIVE) Parvovirus (B19) IgG Antibody Pending Parvovirus (B19) IgM Antibody Pending Microbiology Date/Time Source Procedure Growth Status 03/09/19 19:00 Nasopharynx - Final Complete 03/09/19 19:00 Nasopharynx - Final Complete 03/09/19 12:45 Sputum AFB Specimen Processing Tissue - Final Resulted 03/09/19 12:45 Sputum Acid Fast Bacilli Smear - Final Resulted 03/09/19 12:45 Sputum Acid Fast Bacilli Culture Pending Resulted 03/08/19 20:15 Sputum AFB Specimen Processing Tissue - Final Resulted 03/08/19 20:15 Sputum Acid Fast Bacilli Smear - Final Resulted 03/08/19 20:15 Sputum Acid Fast Bacilli Culture Pending Resulted Intake and Output 03/09/19 03/10/19 19:00 07:00 Intake Total 720 ml 240 ml Balance 720 ml 240 ml Intake Oral 720 ml 240 ml # Voids 6 Objective PHYSICAL EXAMINATION: GENERAL: The patient is awake and responsive, in no acute distress. HEAD AND NECK: Pupils are equal and reactive to light. Extraocular movements intact. Neck was supple. No JVD. LUNGS: Good air entry. No wheezing or rales. HEART: S1, S2. Regular rate and rhythm. No gallops or rubs. ABDOMEN: Soft, nondistended, nontender. Positive bowel sounds. EXTREMITIES: No cyanosis, clubbing, or edema. NEUROLOGIC: Cranial nerves II through XII grossly normal. Motor 5/5 in all extremities. Gait is intact. RECTAL/GENITOURINARY: Refused and deferred. PSYCHIATRIC: Mood and affect is intact. Assessment/Plan Assessment/Plan ASSESSMENT: 1. Upper respiratory infection, possible recurrent tuberculosis. 2. History of TB, treated about 12 years ago. 3. Anemia. PLAN: Admit the patient to respiratory isolation room. We will follow up with Dr. Baldwin, Pulmonary Critical Care as well as Dr. Youngblood from Infectious Disease. PPD placement and sputum for AFB. We will follow up with the laboratory in the morning. Start the patient treatment for the tuberculosis with rifampin, INH, PZA, and ethambutol. We will follow up with the final culture. Gregory Lanier MD Mar 10, 2019 15:40
[2019-03-10 16:00] VITALS: BP 91/55
--- NOTE | 2019-03-10 16:21 | NUR ---
NURSE NOTES: patient discharged to home accompanied by with stable condition. no respiratory distress noted. no pain. no fever. no coughing. provided dc packet. checked and counted belongings with patient. obtained sign. Removed IV and ID band.
--- NOTE | 2019-03-12 09:11 | Discharge Summary ---
Discharge Summary Discharge Summary _ DATE OF ADMISSION: 03/08/2019 DATE OF DISCHARGE: 03/10/2019 DISCHARGED BY : Dr Nowak REASON FOR ADMISSION: 33 years old female with past medical history of tuberculosis, treated 12 years ago, presented for evaluation for possible reactivation. Patient reported 1 month of night sweats and nonproductive intermittent cough. Patient reported intermittent abdominal cramping with diarrhea and pain in her hands as well as headaches. Outpatient blood test on was positive for QuantiFERON TB Gold assay. Patient was presented to ED at the request of her primary medical doctor for further evaluation and management. Patient appeared well with no respiratory distress. She denied chest pain, shortness of breath, palpitations, fever, during the day or skin rash. Upon evaluation vital signs were stable. Laboratory work-up revealed no leukocytosis ,hemoglobin 11, hematocrit 34.5, platelet count 218. Potassium 3.3 , stable other electrolytes and renal parameters. Glucose 110. Stable LFT . Chest x-ray demonstrated no acute cardiopulmonary pathology . Patient admitted for further TB screening CONSULTANTS: pulmonary Dr. Baldwin ID specialist Dr. Youngblood [facility] COURSE: Patient admitted to respiratory isolation room. Gum Cook followed. Patient initially started empirically on rifampin, INH,PZA and ethambutol. Pulse oximetry was stable on room air. PPD was placed. Influenza swab was negative. AFB smears x2 were negative. CT of the chest revealed no acute findings. Patient had no evidence of active TB; no cough, normal chest imaging. QuantiFERON gold and PPD will always be positive , since she has a prior history of tuberculosis. Patient remained afebrile , no leukocytosis . Anti TB regimen stopped. ID specialist recommended to continue monitor patient off antibiotics. HIV test was nonreactive. Patient had a history of tuberculosis, treated 12 years ago , which likely was most likely latent, since patient had no symptoms at the time of diagnosis and no sequela of old TB on the CT scan. DVT prophylaxis provided. ID specialist suspected likely rheumatological disease, given arthralgia and night sweats. Rheumatoid factor negative. LUIZA. c-ANCA , p-ANCA and CCP pending at the time of this dictation. Fungal serology for Blastomyces , histoplasma , parvovirus pending at the time of this dictation . T spot was borderline. Patient complained of intermittent abdominal pain. Abdominal ultrasound revealed mildly echogenic right kidney, nonspecific , but possibly underlying mild renal disease . No acute findings otherwise. Potassium was replaced. Symptomatic treatment provided. Hemoglobin and hematocrit were closely monitored with goal to keep hemoglobin above 7, remained at baseline. Patient was cleared for discharge home. FINAL DIAGNOSES: Upper respiratory infection History of TB treated about 12 years ago, most likely latent TB Arthralgia and night sweats, likely rheumatological disorder Anemia DISCHARGE MEDICATIONS: See Medication Reconciliation list. DISCHARGE INSTRUCTIONS: Patient was discharged home. Follow-up with a primary care provider in 1 week. I have been assigned to dictate discharge summary for this account. I was not involved in the patient's management. Shazia Bo NP Mar 12, 2019 09:11
--- NOTE | 2019-03-12 13:55 | NUR ---
*-* INSURANCE *-* ALL CLINICALS AND REVIEWS HAVE BEEN FAXED TO: [facility] REF# [id number] P: [phone] F: [phone]
--- NOTE | 2019-03-22 14:26 | CDS Physician Query ---
Clarification is required for compliance, coding accuracy, and to reflect severity of illness for this patient. Dear Dr. Nowak, Date: 03.22.19 CDS: Joshua Meyers The findings below have been reported on this patient's medical record: Lab Value/Radiographic finding of: Potassium 3.3L Patient received potassium chloride IVPB. Please Clarify the diagnosis associated with this finding: Diagnosis: Present on Admission: [x ] Yes [ ] No [ ] Clinically Undetermined Physician signature Date Please also document in your Progress Notes and/or Discharge Summary and indicate if the condition was present on admission. MARTA
== END 2019-03-10 16:20 | disposition home or self-care (01) | DRG 153 ==
LOC: EMR 18:45 → 4E 19:50 → 2W 19:50 → UNDOADMIN 19:50 → EDBEDREQ 19:51
DX: J06.9 Acute upper respiratory infection, unspecified (principal); Z86.15 Personal history of latent tuberculosis infection; M06.9 Rheumatoid arthritis, unspecified; D64.9 Anemia, unspecified; R10.9 Unspecified abdominal pain
CPT/HCPCS: 36415; 71045; 71260; 76700; 80053; 82378; 82550; 83615; 83690; 84703; 85025; 85651; 86021; 86039; 86140; 86171; 86200; 86431; 86580; 86612; 86703; 86710; 86747; 87116; 87536; 93306; 99285; J8499